=== PATIENT | female | born 1990 | race Caucasian/White ===

== ENCOUNTER 2023-01-19 09:40 | Emergency (ER) | payer BC, MEDICAID ==
[2023-01-19] MEDS ORDERED: Sodium Chloride 0.9% 10 ML Syringe FLUSH PRN (10:31)
[2023-01-19 10:41] LABS: BASOPHILS ABSOLUTE AUTO 0.1 x10^3/uL (0.0-0.2); BASOPHILS PERCENT AUTO 0.4 % (0.2-1.2); EOSINOPHILS ABSOLUTE AUTO 0.1 x10^3/uL (0.0-0.5); EOSINOPHILS PERCENT AUTO 1.1 % (0.0-4.0); HEMATOCRIT 38.8 % (33.0-47.0); HEMOGLOBIN 13.5 g/dL (12.0-16.0); IMMATURE GRAN ABSOLUTE AUTO 0.02 x10^3/uL (0.00-0.07); LYMPHOCYTES PERCENT AUTO 15.8 % (25.0-50.0); MEAN CORPUSCULAR HEMOGLOBIN 30.1 pg (26.0-32.0); MEAN CORPUSCULAR HGB CONC 34.8 g/dL (32.0-36.0); MEAN CORPUSCULAR VOLUME 86.6 fL (78.0-93.0); MONOCYTES ABSOLUTE AUTO 1.3 x10^3/uL (0.0-0.8); MONOCYTES PERCENT AUTO 10.5 % (2.0-11.0); NEUTROPHILS ABSOLUTE AUTO 8.9 x10^3/uL (1.8-7.7); PLATELET COUNT,PLT 283 x10^3/uL (130-400); RED BLOOD CELL COUNT 4.48 x10^6/uL (4.00-5.50); WHITE BLOOD CELL COUNT,WBC 12.4 x10^3/uL (4.0-10.0)
[2023-01-19 11:03] LABS: INR 0.9 (2.0-3.5); PROTHROMBIN TIME 9.7 SEC (9.5-12.2); PTT,PARTIAL THROMBOPLSTIN TIME 26.7 SEC (23.6-33.6)
[2023-01-19 11:05] LABS: A/G RATIO 1.22; ALANINE AMINOTRANSFERASE,ALT 23 U/L (14-59); ALBUMIN 4.5 g/dL (3.4-5.0); ALKALINE PHOSPHATASE 86 U/L (46-116); ASPARTATE AMNIOTRANSFERASE,AST 15 U/L (15-37); BILIRUBIN TOTAL 0.7 mg/dL (0.2-1.0); BLOOD UREA NITROGEN,BUN 8 mg/dL (7-18); C-REACTIVE PROTEIN 1.5 mg/dL (<=0.9); CALCIUM 9.1 mg/dL (8.5-10.1); CARBON DIOXIDE,CO2 27 mmol/L (21-32); CHLORIDE,CL 102 mmol/L (98-107); CREATININE 0.8 mg/dL (0.55-1.02); GLUCOSE RANDOM 91 mg/dL (70-99); MAGNESIUM 2.3 mg/dL (1.8-2.4); PHOSPHORUS 2.4 mg/dL (2.6-4.7); POTASSIUM,K 3.5 mmol/L (3.5-5.1); PROTEIN TOTAL,TP 8.2 g/dL (6.4-8.2); SODIUM,NA 141 mmol/L (136-145)
[2023-01-19 11:07] LABS: LACTIC ACID 0.5 mmol/L (0.4-2.0)
[2023-01-19 11:09] LABS: ANION GAP 15.5 mmol/L (5-15); ESTIMATED GFR 100 mL/min (>=60)
[2023-01-19] MEDS: Iopamidol 612 MG/ML 100 ML Bottle IVPUSH ONE (11:24)
[2023-01-19] MEDS ORDERED: Sodium Chloride 0.9% 100 ML ONE (11:58)
[2023-01-19] MEDS: Ampicillin/Sulbactam 3 GM Vial IVPUSH ONE (12:03)
[2023-01-19] MEDS ORDERED: Ampicillin/Sulbactam Na 3 GM in Sodium Chloride 0.9% 100 ML IV ONE (12:15)
== END 2023-01-19 14:40 | disposition short-term general hospital (02) ==
LOC: VM.ED 09:40
DX: K04.7 Periapical abscess without sinus (principal); Z72.0 Tobacco use
CPT/HCPCS: 70491; 80053; 83605; 83735; 84100; 84145; 85025; 85610; 85730; 86140; 96374; 99284; 99284-25; J0295; Q9967